=== PATIENT | male | born 1990 | race Caucasian/White ===

== ENCOUNTER 2017-08-03 16:18 | Emergency (ER) | payer OTHER ==
[2017-08-03 16:36] VITALS: BP 112/68; PULSE 16; PULSE 76; RESP 20; TEMP 98.3; O2SAT 100
--- NOTE | 2017-08-03 16:38 | PD ---
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 When he inadvertently punctured his left third digit near the middle phalanx with the tip of a scalpel. It occurred during the morning, patient expressed her attempted to express blood from the middle phalanx and also irrigated copiously. Patient has no symptoms or complaints. The patient knows that the source is positive for hepatitis C, but had a negative or undetectable viral load as of 3 months ago, however it is unknown or unclear whether the patient received any hepatitis C treatment or how long ago. No known drug allergy No significant past medical surgical history Allergies-Medications (Allergen,Severity, Reaction): Coded Allergies: No Known Allergies (Unverified , 08/03/17) Review of Systems Except as stated in HPI: all other systems reviewed are Neg Physical Exam Narrative GENERAL: SKIN: Warm and dry. HEAD: Atraumatic. Normocephalic. EYES: Pupils equal and round. No scleral icterus. No injection or drainage. ENT: No nasal bleeding or discharge. Mucous membranes pink and moist. NECK: Trachea midline. No JVD. CARDIOVASCULAR: Regular rate and rhythm. RESPIRATORY: No accessory muscle use. Clear to auscultation. Breath sounds equal bilaterally. GASTROINTESTINAL: Abdomen soft, non-tender, nondistended. MUSCULOSKELETAL: Extremities without clubbing, cyanosis, or edema. No obvious deformities. NEUROLOGICAL: Awake and alert. No obvious cranial nerve deficits. Motor grossly within normal limits. Five out of 5 muscle strength in the arms and legs. Normal speech. PSYCHIATRIC: Appropriate mood and affect; insight and judgment normal. MDM Medical Decision Making Medical Screen Exam Complete: Yes Emergency Medical Condition: Yes Medical Record Reviewed: Yes Differential Diagnosis Not applicable Narrative Course The patient is moderate of policy had blood work drawn for exposure packet, however looking at the wound and the low risk with known hepatitis C but with known undetectable viral load the risk of transmission is even lower than at baseline. So it is not believed to be at high risk for or to require any Pep additionally the puncture wound was not deep enough and exchange was probably limited and the patient took the correct steps by copious irrigation and cleaning to minimize transmission. 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
== END 2017-08-03 16:46 | disposition home or self-care (01) ==
LOC: NEPD 16:18
DX: S61.233A Puncture wound without foreign body of left middle finger without damage to nail, initial encounter (principal); W26.8XXA Contact with other sharp object(s), not elsewhere classified, initial encounter; Y93.F9 Activity, other caregiving; Y92.234 Operating room of hospital as the place of occurrence of the external cause; Y99.0 Civilian activity done for income or pay; Z20.5 Contact with and (suspected) exposure to viral hepatitis
CPT/HCPCS: 99282